=== PATIENT | male | born 1930 | race Caucasian/White ===

== ENCOUNTER 2017-06-11 18:42 | Emergency (ER) | payer MEDICARE, BC ==
--- NOTE | 2017-06-11 19:56 | ERNOTE ---
<Ezequiel Moran - Last Filed: 06/11/17 20:16> Medical Problem HPI - Narrative Date of Service: 06/11/17 - General Chief Complaint: General Assessment Time Seen by Provider: 06/11/17 19:39 Source: patient, family Exam Limitations: clinical condition - Immun/Allergies/Home Medications Immunizations: IMMUNIZATION HX Immunizations Up to Date Yes History of Influenza Vaccine Yes Hx Pneumococcal Vaccination Yes Allergies/Adverse Reactions: Allergies codeine Adverse Reaction (Mild, Verified 07/11/16 09:07) "HANGOVER S/S" Home Medications: HOME MEDICATIONS Fesoterodine Fumarate [Toviaz] 8 mg PO DAILY 10/01/14 [Last Taken 12/07/14 08:00 ] Multivitamin [Multi-Vitamin Daily] 1 each PO DAILY 10/01/14 [Last Taken 08:00] Omeprazole [Prilosec] 40 mg PO BID 10/01/14 [Last Taken 12/07/14 21:00] Acetaminophen [Tylenol] 1,000 mg PO Q4H PRN 12/08/14 [Last Taken Unknown] Amantadine HCl [Amantadine] 100 mg PO BID@0900,1400 12/08/14 [Last Taken 14:00] Carbidopa/Levodopa 25/100 [Sinemet 25/100] 1 tab PO QID 12/08/14 [Last Taken 15:00] Vit A/Vit C/Vit E/Zinc/Copper [Preservision Areds Tablet] 2 each PO BID [Last Taken 12/07/14 08:00] Bisacodyl [Dulcolax Suppository] 10 mg RC DAILY PRN 06/21/16 [Last Taken Unknown ] Calcium Carbonate [Tums] 500 mg PO DAILY 06/21/16 [Last Taken Unknown] Cholecalciferol (Vitamin D3) [Vitamin D3] 2,000 unit PO DAILY 06/21/16 [Last Taken Unknown] Fexofenadine HCl [[place] Allergy] 180 mg PO DAILY 06/21/16 [Last Taken Unknown] Fludrocortisone Acetate [Florinef] 0.05 mg PO MOWEFR 06/21/16 [Last Taken Unknown] Meclizine HCl [Antivert] 25 mg PO TID PRN 06/21/16 [Last Taken Unknown] Methylcellulose [Citrucel] 1,000 mg PO BID 06/21/16 [Last Taken Unknown] Azithromycin [Zithromax] 250 mg PO DAILY #6 tablet 06/22/16 [Last Taken Unknown] Pramipexole Di-HCl [Mirapex] 0.125 mg PO BID 06/22/16 [Last Taken Unknown] - History of Present History Narrative: At noon today, began to lean to the left. Resides at the [facility] with his . Doesn't drink much. Walks with a walker. Hot today. Has Parkinsons. By supper, was quite weak, and legs wouldn't support him, so his brought him to the ER. Was able to transfer to the ER cart with the assistance of one person. Timing: getting worse Severity: mild, moderate Modifying Factors - (Improves): Present: other - nothing Modifying Factors - (Worsens): Present: other - unknown Review of Systems - Review of Systems Constitutional: Present: weakness, malaise EYE: Present: no symptoms reported ENT: Present: no symptoms reported Respiratory: Present: no symptoms reported Cardiology: Present: no symptoms reported Gastrointestinal/Abdominal: Present: no symptoms reported Genitourinary: Present: no symptoms reported Musculoskeletal: Present: no symptoms reported Skin: Present: no symptoms reported Neurological: Present: See HPI Endocrine: Present: no symptoms reported Hematologic/Lymphatic: Present: no symptoms reported Psych: Present: no symptoms reported All Other Systems: All systems neg except as marked - Patient's Past Medical History Patient History - Medical: Other - Parkinsons Patient History - Cardiac/Respiratory: Hyperlipidemia Patient History - Cancer: No Hx of Cancer Patient History - Surgical Procedures: Cataracts, Colonoscopy, EGD, T & A Patient History - Other: None - Family History Father Family History - Medical: , No pertinent hx Family History - Cardiac/Respiratory: Myocardial Infarction Mother Family History - Medical: , No pertinent hx Family History - Cardiac/Respiratory: No pertinent hx - Social History Living Situations: assisted living Abuse History: No History of abuse Psych History: No pertinent hx Smoking Status: Former smoker Have you smoked in the past 12 months: No Do you dip or chew tobacco: No Alcohol Use: none Drug Use: none - Immunizations Immunizations Up to Date: Yes Hx Pneumococcal Vaccination: Yes History of Influenza Vaccine: Yes Physical Exam - Physical Exam General Appearance: Present: wd/wn, alert, no apparent distress Head Exam: Present: normal inspection Eye Exam: Normal inspection: bilateral, PERRL: bilateral, EOMI: bilateral Ears, Nose, Throat: Present: normal ENT inspection Neck: Present: normal inspection Respiratory: Present: no respiratory distress, normal breath sounds Cardiovascular/Chest: Present: regular rate, rhythm, no murmur Gastrointestinal/Abdominal: Present: normal bowel sounds, nontender, nondistended, soft, no organomegaly Back Exam: Present: normal inspection Extremity Exam: Present: normal inspection, no edema Neurological Exam: Present: alert, oriented, normal mood/affect, other - masked facies, tremor, weak Skin Exam: Present: normal color, warm/dry ED Progress - Vital Signs Patient's Vital Signs:: I have reviewed the patient's vital signs. Vital Signs: Vital Signs 06/11/17 18:45 Temperature 36.9 C Pulse Rate 75 Respiratory 18 Rate Blood Pressure 185/87 O2 Sat by Pulse 99 Oximetry - Progress/Reassessment Chief Complaint: General Assessment Progress:: Unchanged - Transfer of Care Physician Sign Out: Ezequiel Moran Receiving Physician: Abraham Nathan Pending Results: CT/MRI results, Labs Expected Disposition: Discharge Departure - Departure Clinical Impression: Parkinson disease, Weakness, Dizziness of unknown cause, Weakness Disposition: [facility] self-care Condition: Stable Instructions: Near-Syncope Additional Instructions: As we discussed, the labs and tests done here in the emergency room have failed to identify a definitive cause for his symptoms. This does not mean that there is nothing wrong, only that the ER tests are unable to determine the cause. I think he would be best served by returning to your facility where he lives. This is the [facility]. The is indicated that you can get assistance if necessary for getting up or moving around. I wanted to keep the appointment with her family doctor on . Certainly if you develop new worrisome symptoms such as chest pain, blurred vision, headache, shortness of breath he should return to the ER. If you continue to get weak he should return to the ER. If you feel like her in danger of falling he should return to the ER. Return for any new concerning symptoms. Otherwise follow-up with your family doctor as scheduled. Referrals: Prashanth Traore MD [Primary Care Provider] - <Abraham Nathan - Last Filed: 06/11/17 22:10> Medical Problem HPI - Immun/Allergies/Home Medications Immunizations: IMMUNIZATION HX Immunizations Up to Date Yes History of Influenza Vaccine Yes Hx Pneumococcal Vaccination Yes ED Progress - Vital Signs Vital Signs: Vital Signs 06/11/17 18:45 Temperature 36.9 C Pulse Rate 75 Respiratory 18 Rate Blood Pressure 185/87 O2 Sat by Pulse 99 Oximetry - Progress/Reassessment Progress Note-Subjective: 06/11/17 20:27 I received this patient in sign out from the previous physician. Labs and CT are pending. Sounds like the patient just has Parkinson's and has taken a general decrease in energy. No focal deficits. I'm awaiting a CAT scan of the results. Plan - Plan Plan: The patient is able to walk back from the bathroom. He still says that he feels weaker than usual. He says that he doesn't have the ability to get up on his own. He is from [facility]. This is an assisted living facility. I do not have a definite cause for his symptoms. His blood pressure is elevated but he does not have signs of hypertensive urgency or emergency. No chest pain , no throbbing headache, no shortness of breath, no blurred vision. I suspect this is a spurious reading and that when he is out of the hospital and back and is normal environment his blood pressure will normalize. I discussed with him and his that they need to follow-up with their regular doctor. He has an appointment on . Certainly if the patient develops new concerning symptoms they should return to the ER immediately. The patient and the are both comfortable with this plan.
[2017-06-11 20:01] LABS: Hematocrit 42.7 % (42.0-52.0); Hemoglobin 14.5 gm/dL (13.5-18.0); Mean Cell Volume 97.5 fl (78-100); Mean Corpuscular Hemoglobin 33.1 pg (27-31); Neutrophil # 4.5 K/mm3 (1.3-6.0); Neutrophil % 67.1 % (42-75.0); Platelet Count 208 K/mm3 (150-450); Red Blood Count 4.38 M/mm3 (4.7-6.0); Red Cell Distribution Width 13.1 % (11.5-14.0); White Blood Count 6.7 K/mm3 (4.0-10.5)
[2017-06-11 20:22] LABS: ALT 12 U/L (19-67); AST 20 U/L (0-48); Albumin * 3.7 gm/dl (3.4-5.0); Alkaline Phosphatase * 118 U/L (50-170); Anion Gap 8.2 mmol/L (6.8-13.8); BUN/Creatinine Ratio 13.7 (9.0-21.6); Bilirubin, Total 0.4 mg/dL (0.0-1.1); Blood Urea Nitrogen 16 mg/dL (6-23); Ca. Corrected For Albumin 8.5 mg/dL (8.4-10.2); Calcium * 8.6 mg/dL (7.9-10.9); Carbon Dioxide 32.5 mmol/L (24-32.6); Chloride 106 mmol/L (97-106); Glucose * 113 mg/dL (70-110); Potassium 3.7 mmol/L (3.4-4.6); Sodium 143 mmol/L (132-142); T4 Free * 1.12 ng/dL (0.76-1.46); TSH * 1.807 uIU/mL (0.358-3.74); Total Protein 6.6 gm/dL (6.2-8.2)
[2017-06-11 20:23] LABS: Troponin I Less than 0.017 ng/ml (0.00-0.10)
[2017-06-11 21:24] LABS: Urine Appearance Clear; Urine Bilirubin Negative (NEGATIVE); Urine Blood Negative /ul (NEGATIVE); Urine Color Yellow; Urine Ketone 5 mg/dL (NEGATIVE); Urine pH 5.5 pH (5.0-7.0)
[2017-06-11 21:25] LABS: Urine Bacteria None Seen; Urine Nitrite Negative (NEGATIVE); Urine Protein Negative (NEGATIVE); Urine RBC None Seen /hpf (0-5); Urine Urobilinogen Normal (NORMAL); Urine WBC 0-5 /hpf (0-5)
[2017-06-11 23:10] VITALS: BP 177/80
== END 2017-06-11 23:00 | disposition home or self-care (01) ==
LOC: ER 18:42
DX: G20 Parkinson's disease (principal); R53.1 Weakness; R42 Dizziness and giddiness; Z87.891 Personal history of nicotine dependence

== ENCOUNTER 2017-12-31 10:52 | Emergency (ER) | payer MEDICARE, BC ==
[2017-12-31 13:02] VITALS: BP 141/78
--- NOTE | 2017-12-31 13:17 | ERNOTE ---
Upper Extremity HPI - Narrative Date of Service: 12/31/17 - General Extremities Pain Location: 5th finger: right Time Seen by Provider: 12/31/17 12:51 Source: patient, family, halfway records Exam Limitations: dementia - Immun/Allergies/Home Medications Immunizations: IMMUNIZATION HX Immunizations Up to Date Yes History of Influenza Vaccine Yes Hx Pneumococcal Vaccination No Allergies/Adverse Reactions: Allergies Allergy/AdvReac Type Severity Reaction Status Date / Time codeine AdvReac Mild "HANGOVER Verified 07/11/16 09:07 S/S" Home Medications: HOME MEDICATIONS Fesoterodine Fumarate [Toviaz] 8 mg PO DAILY 10/01/14 [Last Taken 12/07/14 08:00 ] Multivitamin [Multi-Vitamin Daily] 1 each PO DAILY 10/01/14 [Last Taken 08:00] Omeprazole [Prilosec] 40 mg PO BID 10/01/14 [Last Taken 12/07/14 21:00] Acetaminophen [Tylenol] 1,000 mg PO Q4H PRN 12/08/14 [Last Taken Unknown] Amantadine HCl [Amantadine] 100 mg PO BID@0900,1400 12/08/14 [Last Taken 14:00] Carbidopa/Levodopa 25/100 [Sinemet 25/100] 1 tab PO QID 12/08/14 [Last Taken 15:00] Vit A/Vit C/Vit E/Zinc/Copper [Preservision Areds Tablet] 2 each PO BID [Last Taken 12/07/14 08:00] Bisacodyl [Dulcolax Suppository] 10 mg RC DAILY PRN 06/21/16 [Last Taken Unknown ] Calcium Carbonate [Tums] 500 mg PO DAILY 06/21/16 [Last Taken Unknown] Cholecalciferol (Vitamin D3) [Vitamin D3] 2,000 unit PO DAILY 06/21/16 [Last Taken Unknown] Fexofenadine HCl [[place] Allergy] 180 mg PO DAILY 06/21/16 [Last Taken Unknown] Fludrocortisone Acetate [Florinef] 0.05 mg PO MOWEFR 06/21/16 [Last Taken Unknown] Meclizine HCl [Antivert] 25 mg PO TID PRN 06/21/16 [Last Taken Unknown] Methylcellulose [Citrucel] 1,000 mg PO BID 06/21/16 [Last Taken Unknown] Azithromycin [Zithromax] 250 mg PO DAILY #6 tablet 06/22/16 [Last Taken Unknown] Pramipexole Di-HCl [Mirapex] 0.125 mg PO BID 06/22/16 [Last Taken Unknown] Cephalexin Monohydrate [Keflex] 500 mg PO QID #40 cap 12/31/17 [Last Taken Unknown] - History of Present Illness Narrative: patient cut 5th right finger last night Occurred: yesterday Location of Incident: other - [facility] Method of Injury: Reports: fell Reason for Fall: Reports: lost balance, slipped Loss of Consciousness: Reports: no loss of consciousness Modifying Factors - (Improves): Reports: cold therapy Modifying Factors - (Worsens): Reports: movement, other Associated Symptoms: Reports: other - none Other Injuries: Reports: none Prior Treament: Reports: other - none Review of Systems - Narrative Narrative: unremarkable - Review of Systems Constitutional: Present: See HPI EYE: Present: no symptoms reported ENT: Present: no symptoms reported Respiratory: Present: no symptoms reported Cardiology: Present: no symptoms reported Gastrointestinal/Abdominal: Present: no symptoms reported Genitourinary: Present: no symptoms reported Musculoskeletal: Present: no symptoms reported Skin: Present: See HPI, other - laceration to distal finger Neurological: Present: no symptoms reported Endocrine: Present: no symptoms reported Hematologic/Lymphatic: Present: no symptoms reported Psych: Present: no symptoms reported All Other Systems: All systems neg except as marked - Patient's Past Medical History Patient History - Medical: No pertinent hx, Other Patient History - Cardiac/Respiratory: Hyperlipidemia Patient History - Cancer: No Hx of Cancer Patient History - Surgical Procedures: Cataracts, Colonoscopy, EGD, T & A Patient History - Other: None - Family History Family History:: no untoward family reactions to anesthesia, no familial bleeding tendencies, no family history of clotting disorders, no family history of premature - Family History Father Family History - Medical: , No pertinent hx Family History - Cardiac/Respiratory: Myocardial Infarction Family History - Cancer: No pertinent family hx Mother Family History - Medical: , No pertinent hx Family History - Cardiac/Respiratory: No pertinent hx - Social History Living Situations: assisted living Abuse History: No History of abuse Psych History: No pertinent hx Does anyone smoke in the home?: No Smoking Status: Former smoker Have you smoked in the past 12 months: No Do you dip or chew tobacco: No Patient requests Smoking Cessation Consult: No Initiate information on Smoking Cessation: No Alcohol Use: none Drug Use: none - Immunizations Immunizations Up to Date: Yes Hx Pneumococcal Vaccination: No History of Influenza Vaccine: Yes Physical Exam - Physical Exam General Appearance: Present: mild distress Head Exam: Present: normal inspection, no evidence of injury Eye Exam: Normal inspection: bilateral, PERRL: bilateral, EOMI: bilateral Ears, Nose, Throat: Present: normal ENT inspection Neck: Present: normal inspection, nontender Respiratory: Present: no respiratory distress, normal breath sounds, no accessory muscle use, chest nontender, lungs clear Cardiovascular/Chest: Present: regular rate, rhythm, no murmur, normal peripheral pulses Peripheral Pulses: N=norm/S=strong/W=weak/B=bound/A=absent: Carotid (R): Normal , Carotid (L): Normal, Radial (R): Normal, Radial (L): Normal, Femoral (R): Normal, Femoral (L): Normal, Dorsalis-pedis (R): Normal, Dorsalis-pedis (L): Normal Gastrointestinal/Abdominal: Present: normal bowel sounds, nontender, nondistended, soft, no organomegaly Back Exam: Present: normal inspection, normal range of motion, no CVA tenderness , no vertebral tenderness Extremity Exam: Present: normal inspection, non-tender, normal range of motion, no edema, other - 1.5 cm laceration to volar surface of fifth finger Skin Exam: Present: normal color, warm/dry Lymphatic Exam: Present: no adenopathy ED Progress - Date and Time Seen: Date and Time: 12/31/17 13:02 condition unchanged, discussed surgical repair not to be done due to length of episode - Vital Signs Patient's Vital Signs:: I have reviewed the patient's vital signs. Vital Signs: Vital Signs 12/31/17 11:11 Temperature 36.1 C L Pulse Rate 74 Respiratory 20 Rate Blood Pressure 174/88 O2 Sat by Pulse 100 Oximetry - X-Ray X-Ray #1 X-Ray: finger - no acute fracture - Progress/Reassessment Chief Complaint: Hand Injury/Pain Progress:: Unchanged - Transfer of Care Expected Disposition: Discharge Plan - Plan Plan: to be discharged Departure Clinical Impression: Laceration of finger - Departure Disposition: [facility] self-care Condition: Fair Instructions: Wound Infection, [id number] Referrals: Prashanth Traore MD [Primary Care Provider] - Prescriptions: Cephalexin Monohydrate [Keflex] 500 mg PO QID #40 cap
[2017-12-31] MEDS ORDERED: DIPHTH,PERTUSS(ACELL),TET VAC 0.5 ML VIAL IM ONE ×2 (13:18)
== END 2017-12-31 13:30 | disposition home or self-care (01) ==
LOC: ER 10:52
DX: S61.214A Laceration without foreign body of right ring finger without damage to nail, initial encounter (principal); Z87.891 Personal history of nicotine dependence; W01.0XXA Fall on same level from slipping, tripping and stumbling without subsequent striking against object, initial encounter; Y92.129 Unspecified place in nursing home as the place of occurrence of the external cause; Z23 Encounter for immunization